=== PATIENT | male | born 1970 | race Caucasian/White ===

== ENCOUNTER 2021-02-03 19:20 | Emergency (ER) | payer OTHER ==
[~2021-02-03] VITALS: Ht 180.3 cm; Wt 86.2 kg
[~2021-02-03 19:20] MED LIST: BACTRIM DS TAB1 EACH PO; FLEXERIL PO; NAPROSYN500 MG PO; NOHOMEMEDICATIONS; PERCOCET 5-3251 EACH PO
[2021-02-03] MEDS ORDERED: LISINOPRIL20 MG PO (19:30)
[2021-02-03] MEDS ORDERED: NORVASC10 MG PO ×2 (19:31→21:47)
[2021-02-03] MEDS ORDERED: XANAX1 MG PO (19:31)
[2021-02-03 20:43] LABS: ABSOLUTE BASOPHILS 0.1 thou/uL (0.0-0.2); ABSOLUTE EOSINOPHILS 0.2 thou/uL (0.0-0.7); ABSOLUTE LYMPHOCYTES 2.2 thou/uL (0.8-5.3); ABSOLUTE MONOCYTES 0.8 thou/uL (0.0-1.2); ABSOLUTE NEUTROPHILS 5.4 thou/uL (1.6-8.1); EOSINOPHILS 1.9 %; HEMATOCRIT 52.6 % (42.0-52.0); HEMOGLOBIN 17.4 gm/dL (14.0-18.0); LYMPHOCYTES 25.3 %; MCH 31.6 pg (26.0-34.0); MCV 95.8 fL (80.0-100.0); MONOCYTES 8.9 %; MPV 7.9 fl. (7.2-11.1); NUCLEATED RBCS 0 /100WBC; PLATELET COUNT* 278 thou/uL (150-400); POLYS 62.9 %; RDW-CV 14.2 % (10.5-14.5); WBC 8.5 thou/uL (4.0-11.0)
[2021-02-03 20:53] LABS: CALCIUM 9.4 mg/dL (8.5-10.1); CREATININE 1.3 mg/dL (0.6-1.3); POTASSIUM 4.4 mmol/L (3.5-5.1)
[2021-02-03 21:04] LABS: ALBUMIN 4.1 g/dL (3.4-5.0); MAGNESIUM 2.6 mg/dL (1.8-2.4); TOTAL BILIRUBIN 0.4 mg/dL (<0.1-1.0); TOTAL PROTEIN 7.8 g/dL (6.4-8.2)
[2021-02-03] MEDS ORDERED: XANAX 1 MG TABLE1 MG PO (21:47)
[2021-02-03 21:52] VITALS: BP 160/103
--- NOTE | 2021-02-06 10:48 | EKG ---
[place] [address] ELECTROCARDIOGRAM REPORT Name: WESLEY CHAPA Room: [facility]#: [id number] Admission: 02/03/21 Attend Phys: Discharge: 02/03/21 Date of : 74 Date of Service: 02/03/211927 Report #: [id number] THIS REPORT FOR: //name// [facility] ED Test Date: 2021-02-03 Test Time: 19:28:46 Pat Name: WESLEY CHAPA Department: Room: Gender: In[employer]: : 1970 Requested By: Xiomara Owens Order Number: [id number] MD: Michael Levy Measurements Intervals [place] Rate: 163 P: 0 DC: QRS: 90 QRSD: 89 T: -6 QT: 280 QTc: 462 Interpretive Statements supraventricular tachycardia Borderline right axis deviation Repolarization abnormality, prob rate related No previous ECG available for comparison Electronically Signed On 02-06-2021 10:48:07 CDT by Michael Levy [email or web address] <ELECTRONICALLY SIGNED> By: Michael Levy MD, [facility] 02/06/21 1048 27 Michael Levy MD, [facility] /EPI
--- NOTE | 2021-02-06 16:16 | EKG ---
[place] [address] ELECTROCARDIOGRAM REPORT Name: WESLEY CHAPA Room: [facility]#: [id number] Admission: 02/03/21 Attend Phys: Discharge: 02/03/21 Date of : 74 Date of Service: 02/03/211957 Report #: [id number] THIS REPORT FOR: //name// [facility] ED Test Date: 2021-02-03 Test Time: 19:58:43 Pat Name: WESLEY GARNICAKLER Department: Room: Gender: Planning Associate: [place] : 1970 Requested By: Xiomara Owens Order Number: [id number] Juan Antonio MD: Michael Levy Measurements Intervals [place] Rate: 117 P: 57 MI: 160 QRS: 85 QRSD: 92 T: 4 QT: 315 QTc: 440 Interpretive Statements Sinus tachycardia Probable left atrial enlargement Minimal ST depression, inferior leads Baseline wander in lead(s) V1,V2,V3 Compared to ECG 02/03/2021 19:28:46 Supraventricular tachycardia no longer present Early repolarization no longer present Electronically Signed On 02-06-2021 16:16:04 CDT by Michael Levy [email or web address] <ELECTRONICALLY SIGNED> By: Michael Levy MD, FAC 02/06/21 1616 57 57 Michael Levy MD, FAC /EPI
== END 2021-02-03 21:50 | disposition home or self-care (01) ==
LOC: M.ERS 19:20
PROVIDERS: Emergency Medicine
DX: I47.1 Supraventricular tachycardia (principal); I10 Essential (primary) hypertension; Z87.891 Personal history of nicotine dependence; Z88.0 Allergy status to penicillin